=== PATIENT | male | born 1950 | race Caucasian/White ===

== ENCOUNTER 2021-02-28 15:52 | Inpatient (IN) ==
[2021-02-28] MEDS ORDERED: 0.9 % SODIUM CHLORIDE 1,000 ML IV ONE (16:05)
[2021-02-28] MEDS ORDERED: ONDANSETRON 4 MG/2 ML VIAL IV ONE (16:05)
[2021-02-28] MEDS ORDERED: cefTRIAXone 2 GM in DEXTROSE 5% IN WATER 50 ML IV ONE (16:05)
[2021-02-28] MEDS: HYDROmorphone 0.5 MG/0.5 ML SYRINGE IV PRN ×3 (16:15→16:55)
[2021-02-28] MEDS ORDERED: ceFAZolin 2 GM in DEXTROSE 5% IN WATER 50 ML IV ONE (16:24)
--- NOTE | 2021-02-28 16:29 | XRay Report ---
CLINICAL INFORMATION: FALL COMPARISON: 02/28/2021 FINDINGS: Moderate cardiomegaly appreciated. Mediastinum and pulmonary vessels are normal. The lungs are clear. No effusions. IMPRESSION: Moderate cardiomegaly. No acute cardiopulmonary disease or posttraumatic change Interpreted and Authenticated by: Edis Tee 02/28/21
[2021-02-28] MEDS ORDERED: PENICILLIN POTASSIUM IV ONE (16:34)
[2021-02-28] MEDS ORDERED: SODIUM CHLORIDE 0.9% IV ONE (16:34)
--- NOTE | 2021-02-28 16:34 | XRay Report ---
CLINICAL INFORMATION: Pain secondary to open fracture. COMPARISON: 03/02/2019 FINDINGS: Severely comminuted fracture the distal fourth of the tibia diaphysis, metaphysis and epiphysis appreciated. The proximal fragment displaced 1 cm medially and posteriorly. Fracture lines indicate with the tibial plafond resulting in incongruity of the articular surface of the ankle. Oblique fracture distal one third of the fibular diaphysis appreciated with the second oblique fracture of the distal fibular diaphysis. Proximal fragment is displaced medially 1 cm. IMPRESSION: Comminuted displaced fracture the distal tibia and fibula. Interpreted and Authenticated by: Edis Tee 02/28/21
--- NOTE | 2021-02-28 16:53 | Emergency Department Note ---
Fall HPI General Chief Complaint: Fall Stated Complaint: open tib fib fracture, fall Time Seen by Provider: 02/28/21 16:05 Source: patient, EMS, RN notes reviewed and old records reviewed Mode of arrival: EMS Limitations: no limitations History of Present Illness HPI Narrative: Narrative: A 70-year-old male was on 3 feet up on a ladder when he got his leg twisted and fell to his left side. [place] a snapping injury to his left lower leg with severe pain and unable to stand up or ambulate. He denied loss of consciousness, he denied neck pain, he denied any new back pain, no chest pain, no shortness of breath, no loss of bowel or bladder control. MD Complaint: fall Onset (ago): hour(s) (1) Fall From: from height (distance) (3 feet) and other (3 foot ladder) Fall Witnessed: no Place Fall Occurred: home Loss of Consciousness: none Prolonged Down Time?: no Symptoms Prior to Fall: none Context: tripped/slipped Location of injury - extremities: Left: lower leg (Open tib-fib fracture with 15 cm medial laceration distal tib-fib) Severity: severe Quality: sharp and stabbing Associated symptoms (after fall): Reports unable to walk; Denies denies, headache, neck pain, numbness, weakness, chest pain, shortness of breath, abdominal pain, hematuria, lightheaded, vertigo and confusion Related Data Home Medications Medication Instructions Recorded Confirmed ascorbic acid (vitamin C) 1,000 mg 1 g PO QDAY tab 07/31/17 11/03/20 tablet Previous Rx's Medication Instructions Recorded CPAP and Supplies #1 ea 09/24/17 Diabetic Shoes #1 each 11/28/17 triamcinolone acetonide 0.1 % 1 applic TOPICAL QDAY #30 g 05/19/20 topical ointment fluoxetine 20 mg capsule 60 mg PO QDAY #270 cap 07/27/20 glipizide 5 mg tablet 5 mg PO QDAY #90 tab 07/27/20 lisinopril 20 mg tablet 20 mg PO QDAY #90 tab 07/27/20 metformin 1,000 mg tablet 1,000 mg PO BID #180 tab 07/27/20 pioglitazone 45 mg tablet 45 mg PO QDAY #90 tab 07/27/20 oxybutynin chloride 5 mg 5 mg PO BID #180 tab 09/01/20 tablet,extended release 24 hr tamsulosin 0.4 mg capsule 0.4 mg PO Q24H #90 cap 09/26/20 Allergies Allergy/AdvReac Type Severity Reaction Status Date / Time No Known Drug Allergies Allergy Verified 02/28/21 15:59 Review of Systems ROS ROS Narrative: Narrative: Limitations: ROS unobtainable due to patients medical condition PFSH Narrative Patient History Narrative: Narrative: Medical/Surgical/Family History All Active Problems (Updated 02/28/21 @ 16:53 by Lenard Dangelo MD) Fracture of tibia and fibula, open (Acute) Bilateral malleolar fractures (Acute) Scleral hemorrhage of right eye (Acute) BPH w urinary obs/LUTS (Acute) Obstructive sleep apnea on CPAP (Chronic) Marijuana use (Chronic) History of tobacco abuse (Chronic) Kidney stones (Chronic ~1999) Hyperlipidemia (Chronic ~1994) Hypertension, essential (Chronic ~1994) Diabetes (Chronic ~1991) Anxiety (Chronic ~2003) Left hydrocele (Chronic) Type 2 diabetes mellitus with diabetic neuropathy (Chronic) Encounter for screening for malignant neoplasm of prostate (Chronic) Sleep apnea (Chronic) Overflow incontinence (Chronic) Other intervertebral disc degeneration, lumbar region (Chronic) Hypercholesteremia (Chronic) Depression (Chronic) Benign essential hypertension (Chronic) Benign enlargement of prostate (Chronic) Medical History (Updated 02/28/21 @ 16:53 by Lenard Dangelo MD) Anxiety (~2003) Benign enlargement of prostate Benign essential hypertension Depression Diabetes (~1991) Encounter for screening for malignant neoplasm of prostate History of tobacco abuse Hypercholesteremia Hyperlipidemia (~1994) Hypertension, essential (~1994) Kidney stones (~1999) x2 Left hydrocele Marijuana use Obstructive sleep apnea on CPAP Other intervertebral disc degeneration, lumbar region Overflow incontinence Sleep apnea Type 2 diabetes mellitus with diabetic neuropathy Surgical History Hx of tonsillectomy (~1950) Family History Father Liver cancer Sister Breast cancer Brother Prostate cancer Mother Migraines Other No pertinent family history Social History Smoking Status: Current every day smoker Alcohol Intake Frequency: a few times a week Substance Use: marijuana Exam Narrative Narrative: Narrative: Primary survey. A: Speaking clearly B: Good bilateral breath sounds pulse ox 99% on room air and within normal limits C: Good dorsal pedal pulses on bilateral lower extremities good radial pulses on bilateral upper extremities D: Able to move all 4 extremities GCS 4 5 6 [place] Coma Scale is 15 Has an open tib-fib fracture distal tib-fib of the left lower extremity Has abrasions to left elbow General Limitations: no limitations General appearance: Present alert, in distress and obese Head Head: Present atraumatic and normocephalic Eye Eye: Present normal appearance, PERRL and EOMI ENT ENT: Present normal exam and mucous membranes moist Neck Neck: Present normal inspection, full ROM and trachea midline; Absent tenderness Chest Chest: Present normal inspection; Absent tenderness Respiratory Respiratory: Present normal lung sounds bilaterally; Absent respiratory distress and decreased breath sounds Cardiovascular Cardiovascular: Present regular rate and normal rhythm; Absent systolic murmur Adbominal Abdominal: Present soft and normal bowel sounds; Absent distention, tenderness, guarding and rebound Rectal Rectal: Present normal rectal tone : Present normal inspection Extremities Extremities: Present normal inspection, tenderness (Open tib-fib on the medial camp tibia fibula that is 15 cm in length. There is exposed bone. He has sensation intact to touch on his toes is able to move his toes notes good dorsal pedal pulse.), normal capillary refill and other (Full range of motion of bilateral upper extremities full range of motion of right lower extremity. Distal neurovascular intact of these 3 extremities.); Absent full ROM, pedal edema and pretibial edema Back Back: Present normal inspection; Absent CVA tenderness (R) and CVA tenderness (L) Neurological Neurological: Present alert and oriented X3 Psychiatric Psychiatric: Present normal affect and normal mood Skin Skin: Present warm (WNL); Absent rash Course Course Course Narrative: I have placed traction on the left lower extremity and was able to reduce the open compound fracture the area was irrigated with saline wet-to-dry dressing was placed on the wound it was closed with Kerlix and a short leg splint was placed with plaster cast and Vipin wrap was done by myself. Patient had received 3 g of Ancef and 3,000,000 units of pen G. His tetanus is up-to-date his last meal was at noon he received 100 mics of fentanyl and 1 mg of Dilaudid. Discussed patient with Dr. Navarro on-call for orthopedic surgery who graciously agreed to evaluate patient in the emergency department. Consultations Consultation #1: Dr. Navarro of orthopedic surgery. Time: 15:44 Procedures Other Procedure: Comminuted compound open fracture of the distal tib-fib. It was reduced with traction by myself in the emergency department where the was no longer any exposed bone it was irrigated cleared and dressed with wet-to-dry dressing and a short leg splint was placed by myself in the emergency department. Patient tolerated procedure well he had good capillary refill and sensation intact to light touch after splint placement. MDM MDM Narrative Medical decision making narrative: Narrative: Patient with compound comminuted open tib-fib fracture of the left lower extremity open fracture was reduced and splinted in the emergency department patient was treated with IV antibiotics and pain medicines preop assessment is taking place discussed patient Dr. Navarro who graciously agreed to evaluate patient in the emergency department. Lab Data Result diagrams: 02/28/21 16:22 02/28/21 16:22 CC TIME Critical Care Time Critical Care Time: Yes Total Critical Care Time: 35 Attestation: Approximately 35minutes of critical care time was used in order to assess and manage the high probability of imminent or life threatening deterioration to compound comminuted tibiofibular ankle fracture which required my highest level of preparedness and interventions with frequent patient assessments. This time is excluding time spent on separately billable procedures. Discharge Plan Patient/Caregiver Discharge Instructions Pt seen by ASSOCIATE DIRECTOR QA/PA only: No Clinical Impression: Fracture of tibia and fibula, open, Bilateral malleolar fractures Patient Disposition: Xfer As Inpt ([facility]) Condition: Fair Follow up with: Edis Ramirez DO [Primary Care Provider] - Prescriptions: No Action (DME) CPAP and Supplies Qty: 1 RF: 0 (DME) Diabetic Shoes Qty: 1 RF: 0 triamcinolone acetonide 0.1 % topical ointment 0.1 % ointment 1 applic TOPICAL QDAY Qty: 30 RF: 1 oxybutynin chloride [Ditropan XL] 5 mg tablet extended release 24hr 5 mg PO BID Qty: 180 RF: 3 tamsulosin [Flomax] 0.4 mg capsule 0.4 mg PO Q24H Qty: 90 RF: 3 fluoxetine 20 mg capsule 60 mg PO QDAY Qty: 270 RF: 3 glipizide 5 mg tablet 5 mg PO QDAY Qty: 90 RF: 3 lisinopril 20 mg tablet 20 mg PO QDAY Qty: 90 RF: 3 metformin 1,000 mg tablet 1,000 mg PO BID Qty: 180 RF: 3 pioglitazone 45 mg tablet 45 mg PO QDAY Qty: 90 RF: 3 ascorbic acid (vitamin C) 1,000 mg tablet 1 g PO QDAY RF: 0
[2021-02-28 16:56] LABS: Basophils # (Auto) 0.04 K/mcL (0.00-0.20); Basophils % (Auto) 0.8 % (0.0-2.0); Eosinophils # (Auto) 0.07 K/mcL (0.00-0.70); Eosinophils % (Auto) 1.4 % (0.0-7.0); Hematocrit 37.9 % (41.0-55.0); Hemoglobin 12.5 g/dL (13.5-16.5); Lymphocytes # (Auto) 1.23 K/mcL (1.50-4.80); Lymphocytes % (Auto) 24.5 % (15.0-49.0); Mean Cell Volume 92.2 fL (80.0-100.0); Mean Platelet Volume 9.2 fL (7.4-10.4); Monocytes # (Auto) 0.56 K/mcL (0.10-0.90); Monocytes % (Auto) 11.1 % (1.0-12.0); Neutrophils % (Auto) 62.2 % (38.0-78.0); Platelet Count 186 K/mcL (140-440); RBC 4.11 M/mcL (4.50-5.90); Red Cell Distribution Width 13.2 % (11.5-14.5)
[2021-02-28] MEDS ORDERED: METOCLOPRAMIDE 10 MG/2 ML VIAL IV ONE (17:01)
[2021-02-28] MEDS ORDERED: FAMOTIDINE/PF 20 MG/2 ML VIAL IV ONE (17:02)
[2021-02-28 17:06] LABS: Prothrombin Time 14.2 sec (11.9-14.5)
[2021-02-28 17:11] LABS: ALT/SGPT 16 U/L (<40); AST/SGOT 17 U/L (<40); Albumin 3.8 gm/dL (3.2-5.2); Albumin/Globulin Ratio 1.7 (1.0-2.3); Alkaline Phosphatase 68 U/L (39-117); Bilirubin,Total 0.3 mg/dL (0.1-1.0); Blood Urea Nitrogen 18 mg/dL (8-23); Calcium 8.6 mg/dL (8.6-10.4); Carbon Dioxide 26 mmol/L (22-30); Chloride 107 mmol/L (96-108); Globulin 2.2 gm/dL (2.2-3.7); Glomerular Filtration Rate 75; Glucose 104 mg/dL (70-105)
[2021-02-28] MEDS ORDERED: IPRATROPIUM/ALBUTEROL 3 ML AMPUL.NEB NEB ONE (17:14)
[2021-02-28] MEDS ORDERED: ROCURONIUM 10 MG/ML ML IV ONE (18:03)
[2021-02-28] MEDS ORDERED: DEXAMETHASONE 10 MG/ML VIAL ONE (18:03)
[2021-02-28] MEDS ORDERED: ONDANSETRON 4 MG/2 ML VIAL ONE (18:03)
[2021-02-28] MEDS ORDERED: PROPOFOL 200 MG/20 ML VIAL IV ONE (18:03)
[2021-02-28] MEDS ORDERED: MIDAZOLAM 2 MG/2 ML VIAL ONE (18:03)
[2021-02-28] MEDS ORDERED: ROPIVACAINE HCL/PF 30 ML VIAL IJ ONE (18:03)
[2021-02-28] MEDS ORDERED: fentaNYL 250 MCG/5 ML VIAL IV ONE (18:03)
[2021-02-28] MEDS ORDERED: METOPROLOL TARTRATE 5 MG/5 ML VIAL IV ONE (18:03)
[2021-02-28] MEDS ORDERED: SUCCINYLCHOLINE 20 MG/ML ML IV ONE (18:03)
[2021-02-28] MEDS ORDERED: TRANEXAMIC ACID 1,000 MG/10 ML VIAL IV ONE ×2 (18:03→21:11)
[2021-02-28] MEDS ORDERED: LIDOCAINE HCL/PF 100 MG/5 ML SYRINGE IV ONE (18:03)
[2021-02-28] MEDS ORDERED: HYDROmorphone 1 MG/ML SYRINGE ONE (18:03)
[2021-02-28] MEDS ORDERED: KETAMINE 100 MG/ML ML ONE (18:03)
[2021-02-28] MEDS ORDERED: DIPH,PERTUSS(ACELL),TET VAC/PF 0.5 ML SYRINGE IM ONE (18:14)
[2021-02-28] MEDS ORDERED: ONDANSETRON 4 MG/2 ML VIAL IV PRN ×2 (21:11→21:32)
--- NOTE | 2021-02-28 21:11 | Brief Operative Note ---
Brief Operative Note Date of procedure: 02/28/21 Pre-op diagnosis: left open tib fib and pilon fx Post-op diagnosis: same Procedure: Left ankle debridement and irrigation and orif pilon fx and orif fibula Grafts/Implants: Yes Anesthesia: GETA Complications: none Surgeon: Levi Akers Regenerator Operator: Jose Fermin Estimated blood loss (cc): 150 Tourniquet Time (Minutes): 110 Specimens Removed/Pathology: none sent Condition: stable Disposition: PACU
[2021-02-28] MEDS ORDERED: CLINDAMYCIN 600 MG in DEXTROSE 5% IN WATER 50 ML IV SCH (21:15)
[2021-02-28] MEDS: fentaNYL 100 MCG/2 ML VIAL IV PRN ×4 (21:16→21:41)
[2021-02-28] MEDS ORDERED: fentaNYL 100 MCG/2 ML VIAL IV ONE (21:17)
[2021-02-28] MEDS ORDERED: ACETAMINOPHEN 1,000 MG/100 ML BAG IV ONE ×2 (21:18→21:32)
[2021-02-28] MEDS ORDERED: HYDROmorphone 0.5 MG/0.5 ML SYRINGE ONE (21:18)
[2021-02-28] MEDS ORDERED: METOPROLOL TARTRATE 5 MG/5 ML VIAL IV PRN ×2 (21:32→22:15)
[2021-02-28] MEDS ORDERED: HYDROmorphone 0.5 MG/0.5 ML SYRINGE IV PRN (21:32)
[2021-02-28] MEDS ORDERED: METHOCARBAMOL 1,000 MG/10 ML VIAL IV PRN (21:32)
[2021-02-28] MEDS ORDERED: ePHEDrine 50 MG/ML AMPUL IV PRN (21:32)
[2021-02-28] MEDS ORDERED: diphenhydrAMINE 50 MG/ML VIAL IV PRN (21:32)
[2021-02-28] MEDS ORDERED: IPRATROPIUM/ALBUTEROL 3 ML AMPUL.NEB NEB PRN (21:32)
[2021-02-28] MEDS ORDERED: ATROPINE SULFATE 0.4 MG/ML VIAL IV PRN (21:32)
[2021-02-28] MEDS ORDERED: MEPERIDINE 25 MG/ML VIAL IV PRN (21:32)
[2021-02-28] MEDS ORDERED: METHOCARBAMOL 1,000 MG/10 ML VIAL ONE (21:33)
[2021-02-28] MEDS ORDERED: LACTATED RINGERS 1,000 ML IV SCH (21:45)
[2021-02-28] MEDS: LACTATED RINGERS 1,000 ML IV SCH (22:10)
[2021-02-28] MEDS ORDERED: DEXTROSE 31 GM ORAL.SUSP PO PRN (22:15)
[2021-02-28] MEDS ORDERED: DEXTROSE 50% 50 ML VIAL IV PRN (22:15)
--- NOTE | 2021-02-28 22:20 | Internal Medicine Consult Note ---
HPI Data of Consult Primary Care Provider: Edis Ramirez DO Consult Narrative Patient Information: Note initiated : 02/28/21 at 10:16 pm Service Date, if different from initiated Date: [] Patient: Luis David 70 y/o M admitted on for open tib fib fracture, fall. Chief Complaint: cc:: Mr. Winter is a 70-year-old with history of DM type II/morbid obesity/hypertension/BPH who fell 3 feet off a ladder landing on his feet and twisting his foot. He noticed bleeding and was unable to bear weight. He was brought into the ER with a open compound fracture distal tib-fib and subsequently was taken to surgery by orthopedics. Postoperatively hospital service was consulted in light of intraoperative atrial fibrillation however rate remained controlled around 100. Patient was seen in the immediate postoperative phase in stable condition. He denies shortness of breath or chest pain. Denies prior history of atrial fibrillation. He is currently sedated and was not able to provide a detailed history to the course of events. Review of systems Denies chest pain, fever, chills, lightheadedness dizziness or shortness of breath PFSH PFSH All Active Problems (Updated 02/28/21 @ 16:53 by Lenard Dangelo MD) Fracture of tibia and fibula, open (Acute) Bilateral malleolar fractures (Acute) Scleral hemorrhage of right eye (Acute) BPH w urinary obs/LUTS (Acute) Obstructive sleep apnea on CPAP (Chronic) Marijuana use (Chronic) History of tobacco abuse (Chronic) Kidney stones (Chronic ~1999) Hyperlipidemia (Chronic ~1994) Hypertension, essential (Chronic ~1994) Diabetes (Chronic ~1991) Anxiety (Chronic ~2003) Left hydrocele (Chronic) Type 2 diabetes mellitus with diabetic neuropathy (Chronic) Encounter for screening for malignant neoplasm of prostate (Chronic) Sleep apnea (Chronic) Overflow incontinence (Chronic) Other intervertebral disc degeneration, lumbar region (Chronic) Hypercholesteremia (Chronic) Depression (Chronic) Benign essential hypertension (Chronic) Benign enlargement of prostate (Chronic) Medical History (Updated 02/28/21 @ 16:53 by Lenard Dangelo MD) Anxiety (~2003) Benign enlargement of prostate Benign essential hypertension Depression Diabetes (~1991) Encounter for screening for malignant neoplasm of prostate History of tobacco abuse Hypercholesteremia Hyperlipidemia (~1994) Hypertension, essential (~1994) Kidney stones (~1999) x2 Left hydrocele Marijuana use Obstructive sleep apnea on CPAP Other intervertebral disc degeneration, lumbar region Overflow incontinence Sleep apnea Type 2 diabetes mellitus with diabetic neuropathy Surgical History Hx of tonsillectomy (~195) Family History Father Liver cancer Sister Breast cancer Brother Prostate cancer Mother Migraines Other No pertinent family history Social History marital status: alcohol intake frequency: a few times a week substance use type: marijuana MEDS/ALLERGIES Home Medications and Allergies Home Medications Medication Instructions Recorded Confirmed Type ascorbic acid (vitamin C) 1,000 mg 1 g PO BID tab 07/31/17 02/28/21 History tablet CPAP and Supplies #1 ea 09/24/17 02/28/21 Rx Diabetic Shoes #1 each 11/28/17 02/28/21 Rx triamcinolone acetonide 0.1 % 1 applic TOPICAL QDAY #30 g 05/19/20 02/28/21 Rx topical ointment fluoxetine 20 mg capsule 60 mg PO QDAY #270 cap 07/27/20 02/28/21 Rx lisinopril 20 mg tablet 20 mg PO QDAY #90 tab 07/27/20 02/28/21 Rx metformin 1,000 mg tablet 1,000 mg PO BID #180 tab 07/27/20 02/28/21 Rx pioglitazone 45 mg tablet 45 mg PO QDAY #90 tab 07/27/20 02/28/21 Rx oxybutynin chloride 5 mg 5 mg PO BID #180 tab 09/01/20 02/28/21 Rx tablet,extended release 24 hr tamsulosin 0.4 mg capsule 0.4 mg PO Q24H #90 cap 09/26/20 02/28/21 Rx Allergies Allergy/AdvReac Type Severity Reaction Status Date / Time No Known Drug Allergies Allergy Verified 02/28/21 15:59 EXAM Constitutional Vitals: Temp Pulse Resp BP Pulse Ox 97.9 F 105 H 12 112/67 99 02/28/21 21:57 02/28/21 21:57 02/28/21 21:57 02/28/21 21:57 04/13/21 21:57 Sedated under effect of anesthesia Head normocephalic Oral cavity moist No ear nose discharge Eye movement symmetrical Neck supple no lymphadenopathy S1-S2 irregular Nonlabored breathing Nondistended nontender abdomen Left lower extremity postoperative dressing no lymphedema Skin no suspicious lesion Psych sedated but opens eyes to verbal commands Neuro could not be examined DATA Data Completed and Pending Labs: Labs from last 24 hours 02/28/21 02/28/21 02/28/21 16:22 16:22 16:22 WBC 5.0 RBC 4.11 L Hgb 12.5 L Hct 37.9 L MCV 92.2 MCH 30.4 MCHC 33.0 RDW 13.2 Plt Count 186 MPV 9.2 Neut % (Auto) 62.2 Lymph % (Auto) 24.5 [place] % (Auto) 11.1 Eos % (Auto) 1.4 Baso % (Auto) 0.8 Lymph # (Auto) 1.23 L [place] # (Auto) 0.56 Eos # (Auto) 0.07 Baso # (Auto) 0.04 Absolute Neutrophils 3.13 PT 14.2 INR 1.0 Sodium 137 Potassium 4.8 Chloride 107 Carbon Dioxide 26 Anion Gap 4.0 L BUN 18 Creatinine 1.0 GFR Calculation 75 Glucose 104 Calcium 8.6 Total Bilirubin 0.3 AST 17 ALT 16 Alkaline Phosphatase 68 Total Protein 6.0 Albumin 3.8 Globulin 2.2 Albumin/Globulin Ratio 1.7 A/P Narrative A/P Narrative: * Open left tib-fib fracture status post operative intervention Hospitalist consult for management of medical issues as below * Atrial fibrillation new onset currently rate controlled. Likely precipitated by fall/injury, operative stress and anesthesia. Continue rate control measures on beta-kera/telemetry monitoring overnight * History of DM type II continue basal prandial insulin/CC diet * History of hypertension hold NAIDA inhibitor * Anxiety disorder continue fluoxetine * BPH continue tamsulosin * History obstructive sleep apnea on home CPAP Plan * Postop care per orthopedics * Rate control measures * Pre-existing medical condition management as above * PT OT, case management coordinate SNF transfer Time Spent With Patient Time: Total time spent is greater than 50% in coordination of care (as documented) at patient's floor/unit and/or counseling patient:
[2021-02-28] MEDS: GENTAMICIN SULFATE IV SCH (23:30)
[2021-02-28] MEDS: SODIUM CHLORIDE 0.9% IV SCH (23:30)
[2021-02-28] MEDS: 0.9 % SODIUM CHLORIDE 10 ML SYRINGE IV SCH (23:32)
[2021-03-01] MEDS: HYDROmorphone 1 MG/ML SYRINGE IV PRN ×2 (00:07→03:31)
[2021-03-01] MEDS ORDERED: GENTAMICIN SULFATE 80 MG/2 ML VIAL ONE ×2 (00:15→00:17)
[2021-03-01] MEDS: SODIUM CHLORIDE 0.9% IV SCH (00:25)
[2021-03-01] MEDS: GENTAMICIN SULFATE IV SCH (00:25)
--- NOTE | 2021-03-01 04:00 | XRay Report ---
CLINICAL INFORMATION: orif left tibia and fibula COMPARISON: None. FINDINGS: Comminuted fractures distal fibula has been reduced to near anatomic alignment transfixed by lateral plate and screws. There is still 1 cm of lateral displacement by a proximal fragment. Oblique fracture mid fibula and second oblique fracture of the distal fibular diaphysis remain unchanged. The proximal fragment shows approximately 8 mm displacement IMPRESSION: ORIF distal tibial fracture with improved alignment Mid and distal fibular diaphyseal fracture-unchanged Interpreted and Authenticated by: Edis Tee 03/01/21
[2021-03-01] MEDS: 0.9 % SODIUM CHLORIDE 10 ML SYRINGE IV SCH ×3 (04:08→22:48)
[2021-03-01 05:56] LABS: Appearance,Urine CLEAR (Clear); Bilirubin,Urine Negative (Negative); Color,Urine YELLOW; Culture Indicated,Urine No; Glucose,Urine (UA) Negative (Negative); Ketones,Urine Negative (Negative); Leukocyte Esterase,Urine Negative /ug (Negative); Mucus,Urine FEW /hpf; Nitrate,Urine Negative (Negative); Protein,Urine Negative (Negative); Specific Gravity,Urine 1.017 (1.000-1.035); Urine Hyaline Cast 1 /lph (0-2); Urine RBC 27 /hpf (0-3); Urine Squamous Epithelial Cell 0 /hpf (0-4); Urine WBC < 1 /hpf (0-4); Urobilinogen,Urine Negative
[2021-03-01] MEDS: INSULIN LISPRO 1 UNIT/0.01 ML UNIT SQ SCH ×4 (07:08→20:32)
--- NOTE | 2021-03-01 07:57 | History and Physical Report ---
DATE OF ADMISSION: 02/28/2021 CHIEF COMPLAINT: Left leg comminuted pilon fracture. HISTORY OF PRESENT ILLNESS: This is a very pleasant 70-year-old male who sustained a fall about 3 feet up off a ladder. He had immediate pain, swelling and deformity with an open fracture of 15 cm. He was seen in the Emergency Room and diagnosed with a comminuted pilon fracture of the distal tibia. This comminution extends into the joint line and extended proximally about 6-8 cm. The open wound was reduced by the ER physician and placed in a posterior splint. He was given Ancef 3 grams as well as Pen G 3 million units. He last ate approximately 5 hours ago. He is a smoker. ALLERGIES: He lists none. PAST MEDICAL HISTORY: Obesity, hypertension. SOCIAL HISTORY: Smoker. PHYSICAL EXAM: GENERAL: A very pleasant 70-year-old male. His son is present in the Emergency Room. I spoke to the patient as well as his son and he describes events with a single leg fall of approximately 3 feet with a twisting type component. He is alert and cooperative, but somewhat confused. LUNGS: Clear to auscultation. CARDIOVASCULAR: Irregularly irregular. No murmurs are heard. ABDOMEN: Large, nontender. LEFT LOWER EXTREMITY: His left leg is in a posterior splint. He is able to move his toes and has normal light touch sensation to the big, second and third toes with good capillary refill. The wound is opened with a 15 cm component. His hip is nontender. DIAGNOSTIC STUDIES: X-rays of his left ankle demonstrate a pilon fracture involving the medial malleolus, fibula in a segmental fashion that extends with a spiral fracture into the distal third of the tibia-fibula. IMPRESSION: Left ankle pilon fracture. PLAN: With this, I have recommended open reduction and internal fixation with debridement and irrigation of the wound and secondary wound closure. We will continue with IV antibiotics and admit to the hospital for 24 hours. He understands the risks and benefits and agrees to proceed. This is an emergency, given the size of the wound and the open nature of the wound. He understands the risk of heart attack, stroke and aspiration. He understands that he will not be weightbearing for 6 weeks or more. RB:beny Job ID: [id number] Doc ID: [id number] Levi Akers MD
--- NOTE | 2021-03-01 08:07 | Operative Note ---
DATE OF OPERATION: 02/28/2021 PREOPERATIVE DIAGNOSIS: Left ankle open type 3 pilon fracture with fibula fracture. POSTOPERATIVE DIAGNOSIS: Left ankle open type 3 pilon fracture with fibula fracture. PROCEDURE: Left pilon fracture debridement and irrigation of the open type 3 fracture and then open reduction internal fixation of the pilon fracture as well as open reduction internal fixation of the fibula. SURGEON: Levi Akers M.D. BUSINESS LINE CONTROLLER: Jose Fermin PA-C. This providers expertise and technical skill were required throughout the case. The SHAREE assisted with preoperative coordination, intraoperative retraction, wound closure, and dressing and splint application, as well as postoperative documentation and care coordination. ANESTHESIA: General LMA anesthesia. COMPLICATIONS: None. TOURNIQUET TIME: Over 110 minutes at 300 mmHg. ESTIMATED BLOOD LOSS: About 150 mL. BLOOD PRODUCTS GIVEN: None. DESCRIPTION OF PROCEDURE: The patient was brought to the operating room, put to sleep with general LMA anesthesia. Once asleep, the patient had the left leg sterilely prepped and draped in the usual sterile fashion. A timeout was performed, confirming it as the operative site. Once the splint had been removed and sterilely prepped and draped, we then thoroughly irrigated the wound. After debriding the skin edges, we irrigated thoroughly and then identified the fracture. It was very comminuted, about 50% of the distance of the tibia and extended into the joint. Once done, we were able to reduce the joint with anterior and posterior screws. We placed an anterior medial pilon fracture plate first fixing the distal fragment and then the segmental fragments and then proximally. We confirmed reduction with images. We irrigated thoroughly and then placed additional screws--number and size of screws per nurse's notes. Once done, we were able to then place interrupted #2 nylon to close the wound. It was measured over 16 cm in length. Distally, we made a 3 cm incision for subcutaneous placement of the plate and then a 4 cm incision proximally for the fracture where we filled the holes with locking screws. We took images on AP and lateral, to confirm the reduction. Once done, we were able then to make an incision about 13 cm in length over the fibula. This was a segmental fracture. This was reduced. We placed a long titanium plate. Three screws were placed distally, four screws in the middle segment and then three screws proximally. This gave excellent alignment of the fibula and excellent fixation. We irrigated thoroughly, closed the skin with 2-0 Vicryl and then steve. His original wound was closed with steve as well. Sterile bandage was applied with Xeroform and a walking boot was placed. Tourniquet was deflated at approximately 110 minutes. Blood loss 150 mL. RBH:kh Job ID: [id number] Doc ID: [id number] Levi Akers MD
[2021-03-01] MEDS: ceFAZolin 1 GM VIAL IV SCH ×2 (08:36)
--- NOTE | 2021-03-01 10:07 | XRay Report ---
CLINICAL INFORMATION: Post Op COMPARISON: None. FINDINGS: Severely comminuted fracture of the distal tibial diaphysis with an oblique component extending the base of the medial malleolus have been reduced and transfixed by medial plate and multiple screws. A proximal fragment, laterally, is displaced 1 cm laterally into the interosseous region. Oblique fracture distal fibular diaphysis and second oblique fracture through the supra malleolar region abdomen reduced to anatomic alignment transfixed by lateral plate and screws. Ankle mortise and talocalcaneal joints are normal. IMPRESSION: ORIF comminuted fractures of the distal tibia fibula-as described Interpreted and Authenticated by: Edis Tee 03/01/21
[2021-03-01] MEDS: METOPROLOL TARTRATE 25 MG TABLET PO SCH ×2 (10:15→20:34)
--- NOTE | 2021-03-01 10:48 | Internal Med Progress Note ---
SUBJECTIVE Subjective Patient information: Note initiated : 03/01/21 at 10:46 am Service Date, if different from initiated Date: [] Patient: Luis David 70 y/o M admitted on 03/01/21 for open tib fib fracture, fall. Chief Complaint: [] Interval history: Mr. Winter is a 70-year-old with history of DM type II/morbid obesity/hypertension/BPH who fell 3 feet off a ladder landing on his feet and twisting his foot. He noticed bleeding and was unable to bear weight. He was brought into the ER with a open compound fracture distal tib-fib and subse quently was taken to surgery by orthopedics. Postoperatively hospital service was consulted in light of intraoperative atrial fibrillation however rate remained controlled around 100. Patient was seen in the immediate postoperative phase in stable condition. He denies shortness of breath or chest pain. Denies prior history of atrial fibrillation. He is currently sedated and was not able to provide a detailed history to the course of events. 03/01-patient doing well postop. Rate controlled. Denies chest pain lightheadedness dizziness. Ongoing physical therapy. Tolerating diet. Stable labs and hemodynamics. Continue postoperative care per orthopedics. Restart home medications except for antihypertensives until systolics over 140. Hemoglobin 12.3. Constitutional Vitals: Vital Signs Temp Pulse Resp BP Pulse Ox 97.9 F 82 14 119/71 98 03/01/21 07:26 03/01/21 07:26 03/01/21 07:26 03/01/21 07:26 03/01/21 07:26 Period Temp Pulse Resp BP Sys/Enriquez Pulse Ox Last 24 Hr 97.9 F-98.4 F 76-112 12-22 101-186/61-124 91-100 Intake and Output 02/28/21 03/01/21 03/01/21 21:59 05:59 13:59 Intake Total 2100 1483.5 180 Output Total 750 750 Balance 1350 733.5 180 Weight 163.293 kg 163.293 kg alert oriented Nonlabored breathing No anxiety No significant postoperative pain swelling or bruising around the operative site Intake & Output: Intake & Output 02/28/21 03/01/21 03/01/21 21:59 05:59 13:59 Intake Total 2100 1483.5 180 Output Total 750 750 Balance 1350 733.5 180 Weight 163.293 kg 163.293 kg Intake: IV 1483.5 Sodium Chloride 0.9% 1,000 ml @ 1000 Wide Open IV .Q0M ONE Rx#: [id number] Gentamicin Sulfate 340 mg In 258.5 Sodium Chloride 0.9% 250 ml @ 250 mls/hr IV ONCE [facility] Rx#: [id number] Lactated Ringers 1,000 ml @ 20 19 mls/hr IV .Q24H [facility] Rx#: [id number] Pfizerpen 3,000,000 Unit In 56 Sodium Chloride 0.9% 50 ml @ 100 mls/hr IV ONCE [facility] Rx#: [id number] Ancef 2 gm In Dextrose 5% in 50 Water 50 ml @ 100 mls/hr IV ONCE ONE Rx#:[id number] Oral 0 180 IV - Manual Only 2100 Output: Urine Catheter Amount 200 750 Estimated Blood Loss 550 Other: Meal Breakfast Percent of Meal Consumed 100% Urine Appearance Clear Clear Uretheral (Patel) Clear Clear Urine Color Bright Yellow Bright Yellow Uretheral (Patel) Bright Yellow Dark Yellow Urine Odor Normal OBJ DATA Labs CBC & Chem 7: 03/01/21 08:56 02/28/21 16:22 Labs: Abnormal Lab Results 03/01/21 03/01/21 02/28/21 08:56 04:45 16:22 RBC Hgb Hct 33.1 L Lymph # (Auto) Anion Gap 4.0 L Urine RBC 27 H Urine Mucus Few A 02/28/21 16:22 RBC 4.11 L Hgb 12.5 L Hct 37.9 L Lymph # (Auto) 1.23 L Anion Gap Urine RBC Urine Mucus Meds: Medications Hydrocodone Bitart/Acetaminophen (Hydrocodone/Apap 10/325mg Tablet) 0 tab PO Q4HP PRN; Protocol PRN Reason: Per Pain Protocol Dextrose (Dextrose 50% 50 Ml Vial) 0 ml IV UD PRN PRN Reason: Hypoglycemia Diagnostic Test (Pha) (Accu-Chek 1 Each Strip) 1 each FS ACHS [facility] Last Admin: 03/01/21 07:08 Dose: 1 each Documented by: Fluoxetine HCl (Fluoxetine Hcl 20 Mg Capsule) 60 mg PO QDAY [facility] Glucose (Dextrose 31 Gm Oral.Susp) 15 gm PO PRN PRN PRN Reason: Hypoglycemia Hydromorphone HCl (Hydromorphone 1 Mg/Ml Syringe) 0 mg IV Q2HP PRN; Protocol PRN Reason: Per Pain Protocol Last Admin: 03/01/21 03:31 Dose: 0.5 mg Documented by: Lactated Ringer's (Lactated Ringers) 1,000 mls @ 50 mls/hr IV .Q20H [facility] Last Admin: 02/28/21 22:10 Dose: 50 mls/hr Documented by: Insulin Human Lispro (Insulin Lispro 1 Unit/0.01 Ml Unit) 0 unit SQ ACHS [facility]; Protocol Last Admin: 03/01/21 07:08 Dose: Not Given Documented by: Metoprolol Tartrate (Metoprolol Tartrate 25 Mg Tablet) 12.5 mg PO BID [facility] Last Admin: 03/01/21 10:15 Dose: 12.5 mg Documented by: Non-Formulary Medication (Metformin) 1,000 mg PO BID [facility] Non-Formulary Medication (Triamcinolone Acetonide) 1 applic TOPICAL QDAY [facility] Non-Formulary Medication (Ascorbic Acid (Vitamin C)) 1 g PO BID [facility] Ondansetron HCl (Ondansetron 4 Mg/2 Ml Vial) 4 mg IV Q6HP PRN; Protocol PRN Reason: Nausea And Vomiting Oxybutynin Chloride (Oxybutynin Chloride 5 Mg Tab.Xl.24h) 5 mg PO BID [facility] Pioglitazone HCl (Pioglitazone Hcl 45 Mg Tablet) 45 mg PO QDAY [facility] Sodium Chloride (0.9 % Sodium Chloride 10 Ml Syringe) 10 ml IV Q8 [facility] Last Admin: 03/01/21 04:08 Dose: Not Given Documented by: Tamsulosin HCl (Tamsulosin 0.4 Mg Capsule) 0.4 mg PO Q24H [facility] A/P Narrative A/P Narrative: * Open left tib-fib fracture status post operative intervention Hospitalist consult for management of medical issues as below * Atrial fibrillation new onset currently rate controlled on beta-kera. Likely precipitated by fall/injury, operative stress and anesthesia. Continually monitoring * History of DM type II continue basal prandial insulin/CC diet * History of hypertension restart NAIDA inhibitor in 24 hours with holding parameters * Anxiety disorder continue fluoxetine * BPH continue tamsulosin * History obstructive sleep apnea on home CPAP Plan * Continue postop care per orthopedics * Rate control measures on oral beta-kera * Pre-existing medical condition management as above * PT OT, case management coordinate SNF transfer Time Spent With Patient Time: Total time spent is greater than 50% in coordination of care (as documented) at patient's floor/unit and/or counseling patient:
[2021-03-01] MEDS: HYDROcodone/APAP 10/325MG TABLET PO PRN ×3 (11:58→20:38)
[2021-03-01] MEDS: LACTATED RINGERS 1,000 ML IV SCH (16:26)
[2021-03-01] MEDS: metFORMIN 500 MG TABLET PO SCH (16:34)
--- NOTE | 2021-03-01 16:57 | Orthopedic Progress Note ---
SUBJECTIVE Subjective Patient information: Note initiated : 03/01/21 at 4:53 pm Service Date, if different from initiated Date: [] Patient: Luis David 70 y/o M admitted on 03/01/21 for open tib fib fracture, fall. Chief Complaint: [minimal pain with sciatic nerve block no nausea ] Constitutional Vitals: Vital Signs Temp Pulse Resp BP Pulse Ox 97.9 F 76 17 112/67 98 03/01/21 16:00 03/01/21 16:00 03/01/21 16:00 03/01/21 16:00 03/01/21 16:00 Period Temp Pulse Resp BP Sys/Enriquez Pulse Ox Last 24 Hr 97.9 F-98.4 F 76-112 - 101-186/61-124 91-100 Intake and Output 03/01/21 03/01/21 03/01/21 05:59 13:59 21:59 Intake Total 1483.5 180 804 Output Total 750 650 900 Balance 733.5 -470 -96 Weight 360 lb Intake & Output: Intake & Output 03/01/21 03/01/21 03/01/21 05:59 13:59 21:59 Intake Total 1483.5 180 804 Output Total 750 650 900 Balance 733.5 -470 -96 Weight 360 lb Intake: IV 1483.5 804 Sodium Chloride 0.9% 1,000 ml @ 1000 Wide Open IV .Q0M [facility] Rx#: [id number] Gentamicin Sulfate 340 mg In 258.5 Sodium Chloride 0.9% 250 ml @ 250 mls/hr IV ONCE [facility] Rx#: [id number] Lactated Ringers 1,000 ml @ 50 19 804 mls/hr IV .Q20H [facility] Rx#: [id number] Pfizerpen 3,000,000 Unit In 56 Sodium Chloride 0.9% 50 ml @ 100 mls/hr IV ONCE [facility] Rx#: [id number] Ancef 2 gm In Dextrose 5% in 50 Water 50 ml @ 100 mls/hr IV ONCE [facility] Rx#:[id number] Oral 0 180 Output: Urine Catheter Amount 750 650 900 Other: Meal Breakfast Percent of Meal Consumed 100% Urine Appearance Clear Clear Uretheral (Patel) Clear Urine Color Bright Yellow Dark Yellow Uretheral (Patel) Dark Yellow Urine Odor Normal Expanded Lower Extremity Exam Neuro vascular tendon exam: Present decreased fine/light touch, motor deficit (moving toes and ankle) and sensory deficit Gait: Present unable to bear weight Leg image: 1. 2. 3. 4. 5. OBJ DATA Labs CBC & Chem 7: 03/01/21 08:56 02/28/21 16:22 Labs: Abnormal Lab Results 03/01/21 03/01/21 02/28/21 08:56 04:45 16:22 RBC Hgb Hct 33.1 L Lymph # (Auto) Anion Gap 4.0 L Urine RBC 27 H Urine Mucus Few A 02/28/21 16:22 RBC 4.11 L Hgb 12.5 L Hct 37.9 L Lymph # (Auto) 1.23 L Anion Gap Urine RBC Urine Mucus Meds: Medications Hydrocodone Bitart/Acetaminophen (Hydrocodone/Apap 10/325mg Tablet) 0 tab PO Q4HP PRN; Protocol PRN Reason: Per Pain Protocol Last Admin: 03/01/21 16:33 Dose: 2 tab Documented by: Ascorbic Acid (Ascorbic Acid 500 Mg Tablet) 1,000 mg PO BID [facility] Dextrose (Dextrose 50% 50 Ml Vial) 0 ml IV UD PRN PRN Reason: Hypoglycemia Diagnostic Test (Pha) (Accu-Chek 1 Each Strip) [address] [facility] Last Admin: 03/01/21 16:35 Dose: 1 each Documented by: Fluoxetine HCl (Fluoxetine Hcl 20 Mg Capsule) 60 mg PO QDAY [facility] Glucose (Dextrose 31 Gm Oral.Susp) 15 gm PO PRN PRN PRN Reason: Hypoglycemia Hydromorphone HCl (Hydromorphone 1 Mg/Ml Syringe) 0 mg IV Q2HP PRN; Protocol PRN Reason: Per Pain Protocol Last Admin: 03/01/21 03:31 Dose: 0.5 mg Documented by: Lactated Ringer's (Lactated Ringers) 1,000 mls @ 50 mls/hr IV .Q20H [facility] Last Admin: 03/01/21 16:26 Dose: Not Given Documented by: Insulin Human Lispro (Insulin Lispro 1 Unit/0.01 Ml Unit) [address] [facility]; Protocol Last Admin: 03/01/21 16:39 Dose: Not Given Documented by: Metformin HCl (Metformin 500 Mg Tablet) 1,000 mg PO BIDCC [facility] Last Admin: 03/01/21 16:34 Dose: 1,000 mg Documented by: Metoprolol Tartrate (Metoprolol Tartrate 25 Mg Tablet) 12.5 mg PO BID [facility] Last Admin: 03/01/21 10:15 Dose: 12.5 mg Documented by: Ondansetron HCl (Ondansetron 4 Mg/2 Ml Vial) 4 mg IV Q6HP PRN; Protocol PRN Reason: Nausea And Vomiting Oxybutynin Chloride (Oxybutynin Chloride 5 Mg Tab.Xl.24h) 5 mg PO BID [facility] Triamcinolone Acetonide 0.1 % Ointment 1 dose TOPICAL DAILYP PRN PRN Reason: Rash Pioglitazone HCl (Pioglitazone 15 Mg Tablet) 45 mg PO DAILY [facility] Sodium Chloride (0.9 % Sodium Chloride 10 Ml Syringe) 10 ml IV Q8 [facility] Last Admin: 03/01/21 16:34 Dose: 10 ml Documented by: Tamsulosin HCl (Tamsulosin 0.4 Mg Capsule) 0.4 mg PO [facility] A/P Narrative A/P Narrative: dc home in am if able to do pt Time Spent With Patient Time: Total time spent is greater than 50% in coordination of care (as documented) at patient's floor/unit and/or counseling patient: Total time spent with greater than 50% in coordination of care (as documented) at patient's floor/unit and/or counseling patient:: 15 - 24 minutes
--- NOTE | 2021-03-01 17:09 | Orthopedic Progress Note ---
SUBJECTIVE Subjective Patient information: Note initiated : 03/01/21 at 5:07 pm Service Date, if different from initiated Date: [] Patient: Luis David 70 y/o M admitted on 03/01/21 for open tib fib fracture, fall. Chief Complaint: [] Constitutional Vitals: Vital Signs Temp Pulse Resp BP Pulse Ox 97.9 F 76 17 112/67 98 03/01/21 16:00 03/01/21 16:00 03/01/21 16:00 03/01/21 16:00 03/01/21 16:00 Period Temp Pulse Resp BP Sys/Enriquez Pulse Ox Last 24 Hr 97.9 F-98.4 F 76-112 12-22 101-186/61-124 91-100 Intake and Output 03/01/21 03/01/21 03/01/21 05:59 13:59 21:59 Intake Total 1483.5 180 804 Output Total 750 650 900 Balance 733.5 -470 -96 Weight 360 lb Intake & Output: Intake & Output 03/01/21 03/01/21 03/01/21 05:59 13:59 21:59 Intake Total 1483.5 180 804 Output Total 750 650 900 Balance 733.5 -470 -96 Weight 360 lb Intake: IV 1483.5 804 Sodium Chloride 0.9% 1,000 ml @ 1000 Wide Open IV .Q0M [facility] Rx#: [id number] Gentamicin Sulfate 340 mg In 258.5 Sodium Chloride 0.9% 250 ml @ 250 mls/hr IV ONCE [facility] Rx#: [id number] Lactated Ringers 1,000 ml @ 50 19 804 mls/hr IV .Q20H [facility] Rx#: [id number] Pfizerpen 3,000,000 Unit In 56 Sodium Chloride 0.9% 50 ml @ 100 mls/hr IV ONCE [facility] Rx#: [id number] Ancef 2 gm In Dextrose 5% in 50 Water 50 ml @ 100 mls/hr IV ONCE [facility] Rx#:[id number] Oral 0 180 Output: Urine Catheter Amount 750 650 900 Other: Meal Breakfast Percent of Meal Consumed 100% Urine Appearance Clear Clear Uretheral (Patel) Clear Urine Color Bright Yellow Dark Yellow Uretheral (Patel) Dark Yellow Urine Odor Normal OBJ DATA Labs CBC & Chem 7: 03/01/21 08:56 02/28/21 16:22 Labs: Abnormal Lab Results 03/01/21 03/01/21 02/28/21 08:56 04:45 16:22 RBC Hgb Hct 33.1 L Lymph # (Auto) Anion Gap 4.0 L Urine RBC 27 H Urine Mucus Few A 02/28/21 16:22 RBC 4.11 L Hgb 12.5 L Hct 37.9 L Lymph # (Auto) 1.23 L Anion Gap Urine RBC Urine Mucus Meds: Medications Hydrocodone Bitart/Acetaminophen (Hydrocodone/Apap 10/325mg Tablet) 0 tab PO Q4HP PRN; Protocol PRN Reason: Per Pain Protocol Last Admin: 03/01/21 16:33 Dose: 2 tab Documented by: Ascorbic Acid (Ascorbic Acid 500 Mg Tablet) 1,000 mg PO BID [facility] Dextrose (Dextrose 50% 50 Ml Vial) 0 ml IV UD PRN PRN Reason: Hypoglycemia Diagnostic Test (Pha) (Accu-Chek 1 Each Strip) 1 each FS [facility] Last Admin: 03/01/21 16:35 Dose: 1 each Documented by: Fluoxetine HCl (Fluoxetine Hcl 20 Mg Capsule) 60 mg PO QDAY [facility] Glucose (Dextrose 31 Gm Oral.Susp) 15 gm PO PRN PRN PRN Reason: Hypoglycemia Hydromorphone HCl (Hydromorphone 1 Mg/Ml Syringe) 0 mg IV Q2HP PRN; Protocol PRN Reason: Per Pain Protocol Last Admin: 03/01/21 03:31 Dose: 0.5 mg Documented by: Lactated Ringer's (Lactated Ringers) 1,000 mls @ 50 mls/hr IV .Q20H [facility] Last Admin: 03/01/21 16:26 Dose: Not Given Documented by: Insulin Human Lispro (Insulin Lispro 1 Unit/0.01 Ml Unit) 0 unit SQ [facility]; Protocol Last Admin: 03/01/21 16:39 Dose: Not Given Documented by: Metformin HCl ([facility] 500 Mg [facility]t) [facility] Last Admin: 03/01/21 16:34 Dose: 1,000 mg Documented by: Metoprolol Tartrate (Metoprolol Tartrate 25 Mg Tablet) 12.5 mg PO BID [facility] Last Admin: 03/01/21 10:15 Dose: 12.5 mg Documented by: Ondansetron HCl (Ondansetron 4 Mg/2 Ml Vial) 4 mg IV Q6HP PRN; Protocol PRN Reason: Nausea And Vomiting Oxybutynin Chloride (Oxybutynin Chloride 5 Mg Tab.Xl.24h) 5 mg PO BID [facility] Triamcinolone Acetonide 0.1 % Ointment 1 dose TOPICAL DAILYP PRN PRN Reason: Rash Pioglitazone HCl (Pioglitazone 15 Mg Tablet) 45 mg PO DAILY [facility] Sodium Chloride (0.9 % Sodium Chloride 10 Ml Syringe) 10 ml IV Q8 [facility] Last Admin: 03/01/21 16:34 Dose: 10 ml Documented by: Tamsulosin HCl (Tamsulosin 0.4 Mg Capsule) 0.4 mg PO HS [facility] A/P Narrative A/P Narrative: Patient requires admit for 36 hours of IV antibiotics and therapy to show use of walker and to have patient walk nwb lle then may dc home He has a type 3a open fracture left pilon fx Time Spent With Patient Time: Total time spent is greater than 50% in coordination of care (as documented) at patient's floor/unit and/or counseling patient:
[2021-03-01] MEDS: TAMSULOSIN 0.4 MG CAPSULE PO SCH (20:34)
[2021-03-01] MEDS: ASCORBIC ACID 500 MG TABLET PO SCH (20:34)
[2021-03-01] MEDS: OXYBUTYNIN CHLORIDE 5 MG TAB.XL.24H PO SCH (20:34)
[2021-03-01] MEDS: ASPIRIN 81 MG TAB.CHEW PO SCH (20:37)
[2021-03-02] MEDS: HYDROcodone/APAP 10/325MG TABLET PO PRN ×6 (01:47→21:25)
[2021-03-02] MEDS: 0.9 % SODIUM CHLORIDE 10 ML SYRINGE IV SCH ×3 (05:33→21:34)
[2021-03-02 06:34] LABS: Basophils # (Auto) 0.04 K/mcL (0.00-0.20); Basophils % (Auto) 0.4 % (0.0-2.0); Eosinophils # (Auto) 0 K/mcL (0.00-0.70); Eosinophils % (Auto) 0 % (0.0-7.0); Hematocrit 32.9 % (41.0-55.0); Hemoglobin 10.8 g/dL (13.5-16.5); Lymphocytes # (Auto) 1.35 K/mcL (1.50-4.80); Lymphocytes % (Auto) 15.1 % (15.0-49.0); Mean Cell Volume 93.2 fL (80.0-100.0); Mean Corpuscular HGB Conc 32.8 g/dL (31.0-36.0); Mean Platelet Volume 9.7 fL (7.4-10.4); Monocytes # (Auto) 0.99 K/mcL (0.10-0.90); Monocytes % (Auto) 11.1 % (1.0-12.0); Neutrophils % (Auto) 73.4 % (38.0-78.0); Platelet Count 168 K/mcL (140-440); RBC 3.53 M/mcL (4.50-5.90); Red Cell Distribution Width 13.5 % (11.5-14.5)
[2021-03-02 07:06] LABS: ALT/SGPT 15 U/L (<40); AST/SGOT 34 U/L (<40); Albumin 3.4 gm/dL (3.2-5.2); Albumin/Globulin Ratio 1.4 (1.0-2.3); Alkaline Phosphatase 52 U/L (39-117); Bilirubin,Direct < 0.2 mg/dL (0-0.3); Bilirubin,Total 0.6 mg/dL (0.1-1.0); Blood Urea Nitrogen 20 mg/dL (8-23); Calcium 8.5 mg/dL (8.6-10.4); Carbon Dioxide 29 mmol/L (22-30); Chloride 106 mmol/L (96-108); Globulin 2.4 gm/dL (2.2-3.7); Glomerular Filtration Rate 85; Glucose 131 mg/dL (70-105); Lactate Dehydrogenase 205 U/L (135-225); Phosphorous 2.7 mg/dL (2.5-4.5); Triglycerides 52 mg/dL (<150)
[2021-03-02] MEDS: metFORMIN 500 MG TABLET PO SCH ×2 (08:01→16:55)
[2021-03-02] MEDS: OXYBUTYNIN CHLORIDE 5 MG TAB.XL.24H PO SCH ×2 (08:09→21:27)
[2021-03-02] MEDS: FLUoxetine HCL 20 MG CAPSULE PO SCH (08:10)
[2021-03-02] MEDS: PIOGLITAZONE 15 MG TABLET PO SCH (08:10)
[2021-03-02] MEDS: ASPIRIN 81 MG TAB.CHEW PO SCH ×2 (08:10→21:27)
[2021-03-02] MEDS: METOPROLOL TARTRATE 25 MG TABLET PO SCH ×2 (08:10→21:26)
[2021-03-02] MEDS: ASCORBIC ACID 500 MG TABLET PO SCH ×2 (08:10→21:26)
[2021-03-02] MEDS ORDERED: Triamcinolone Acetonide 0.1 % ointment TOPICAL PRN (09:00)
[2021-03-02] MEDS: INSULIN LISPRO 1 UNIT/0.01 ML UNIT SQ SCH ×4 (10:13→21:33)
--- NOTE | 2021-03-02 10:42 | Internal Med Progress Note ---
SUBJECTIVE Subjective Patient information: Note initiated : 03/02/21 at 10:39 am Service Date, if different from initiated Date: [] Patient: Luis David 70 y/o M admitted on 03/01/21 for open tib fib fracture, fall. Chief Complaint: [] Interval history: Mr. Winter is a 70-year-old with history of DM type II/morbid obesity/hypertension/BPH who fell 3 feet off a ladder landing on his feet and twisting his foot. He noticed bleeding and was unable to bear weight. He was brought into the ER with a open compound fracture distal tib-fib and subse quently was taken to surgery by orthopedics. Postoperatively hospital service was consulted in light of intraoperative atrial fibrillation however rate remained controlled around 100. Patient was seen in the immediate postoperative phase in stable condition. He denies shortness of breath or chest pain. Denies prior history of atrial fibrillation. He is currently sedated and was not able to provide a detailed history to the course of events. 03/01-patient doing well postop. Rate controlled. Denies chest pain lightheadedness dizziness. Ongoing physical therapy. Tolerating diet. Stable labs and hemodynamics. Continue postoperative care per orthopedics. Restart home medications except for antihypertensives until systolics over 140. Hemoglobin 12.3. 03/02-patient doing well. Still requiring assistance with physical therapy. Anticipate transfer to SNF in 48 hours. Case management coordinating. No overnight fever chills. Hemoglobin stable. Postop pain in good control. Cont inuing postoperative care per orthopedics. Remains rate controlled. Persistent A. fib. Consider anticoagulation for CVA prophylaxis based on CHADS2 score over 2. Constitutional Vitals: Vital Signs Temp Pulse Resp BP Pulse Ox 97.8 F 98 H 18 121/69 96 03/02/21 07:22 03/02/21 07:22 03/02/21 07:22 03/02/21 07:22 03/02/21 07:22 Period Temp Pulse Resp BP Sys/Enriquez Pulse Ox Last 24 Hr 97.8 F-98.7 F 76-98 16-22 107-142/53-76 96-99 Intake and Output 03/01/21 03/02/21 03/02/21 21:59 05:59 13:59 Intake Total 804 100 Output Total 900 1975 Balance -96 -1875 Weight 172.138 kg Alert oriented Nonlabored breathing Postop dressing no oozing No anxiety Intake & Output: Intake & Output 03/01/21 03/02/21 03/02/21 21:59 05:59 13:59 Intake Total 804 100 Output Total 900 1974 Balance -96 -187 Weight 172.138 kg Intake: IV 804 Lactated Ringers 1,000 ml @ 50 804 mls/hr IV .Q20H [facility] Rx#: [id number] Oral 100 Output: Urine Catheter Amount 900 1974 Other: Urine Appearance Clear Clear Urine Color Dark Yellow Bright Yellow Urine Odor Normal OBJ DATA Labs CBC & Chem 7: 03/02/21 05:05 03/02/21 05:05 Labs: Abnormal Lab Results 03/02/21 03/02/21 03/01/21 05:05 05:05 08:56 RBC 3.53 L Hgb 10.8 L Hct 32.9 L 33.1 L Lymph # (Auto) 1.35 L [place] # (Auto) 0.99 H Anion Gap 4.0 L Glucose 131 H Calcium 8.5 L Total Protein 5.8 L Urine RBC Urine Mucus 03/01/21 02/28/21 02/28/21 04:45 16:22 16:22 RBC 4.11 L Hgb 12.5 L Hct 37.9 L Lymph # (Auto) 1.23 L [place] # (Auto) Anion Gap 4.0 L Glucose Calcium Total Protein Urine RBC 27 H Urine Mucus Few A Meds: Medications Hydrocodone Bitart/Acetaminophen (Hydrocodone/Apap 10/325mg Tablet) 0 tab PO Q4HP PRN; Protocol PRN Reason: Per Pain Protocol Last Admin: 03/02/21 09:36 Dose: 2 tab Documented by: Ascorbic Acid (Ascorbic Acid 500 Mg Tablet) 1,000 mg PO BID [facility] Last Admin: 03/02/21 08:10 Dose: 1,000 mg Documented by: Aspirin (Aspirin 81 Mg Tab.Chew) 81 mg PO BID [facility] Last Admin: 03/02/21 08:10 Dose: 81 mg Documented by: Dextrose (Dextrose 50% 50 Ml Vial) 0 ml IV UD PRN PRN Reason: Hypoglycemia Diagnostic Test (Pha) (Accu-Chek 1 Each Strip) 1 each FS ACHS [facility] Last Admin: 03/02/21 10:12 Dose: 1 each Documented by: Fluoxetine HCl (Fluoxetine Hcl 20 Mg Capsule) 60 mg PO QDAY [facility] Last Admin: 03/02/21 08:10 Dose: 60 mg Documented by: Glucose (Dextrose 31 Gm Oral.Susp) 15 gm PO PRN PRN PRN Reason: Hypoglycemia Hydromorphone HCl (Hydromorphone 1 Mg/Ml Syringe) 0 mg IV Q2HP PRN; Protocol PRN Reason: Per Pain Protocol Last Admin: 03/01/21 03:31 Dose: 0.5 mg Documented by: Lactated Ringer's (Lactated Ringers) 1,000 mls @ 50 mls/hr IV .Q20H [facility] Last Admin: 03/01/21 16:26 Dose: Not Given Documented by: Insulin Human Lispro (Insulin Lispro 1 Unit/0.01 Ml Unit) 0 unit SQ ACHS [facility]; Protocol Last Admin: 03/02/21 10:13 Dose: Not Given Documented by: Metformin HCl (Metformin 500 Mg Tablet) 1,000 mg PO BIDCC [facility] Last Admin: 03/02/21 08:01 Dose: 1,000 mg Documented by: Metoprolol Tartrate (Metoprolol Tartrate 25 Mg Tablet) 12.5 mg PO BID [facility] Last Admin: 03/02/21 08:10 Dose: 12.5 mg Documented by: Ondansetron HCl (Ondansetron 4 Mg/2 Ml Vial) 4 mg IV Q6HP PRN; Protocol PRN Reason: Nausea And Vomiting Oxybutynin Chloride (Oxybutynin Chloride 5 Mg Tab.Xl.24h) 5 mg PO BID [facility] Last Admin: 03/02/21 08:09 Dose: 5 mg Documented by: Triamcinolone Acetonide 0.1 % Ointment 1 dose TOPICAL DAILYP PRN PRN Reason: Rash Pioglitazone HCl (Pioglitazone 15 Mg Tablet) 45 mg PO DAILY [facility] Last Admin: 03/02/21 08:10 Dose: 45 mg Documented by: Sodium Chloride (0.9 % Sodium Chloride 10 Ml Syringe) 10 ml IV Q8 [facility] Last Admin: 03/02/21 05:33 Dose: 10 ml Documented by: Tamsulosin HCl (Tamsulosin 0.4 Mg Capsule) 0.4 mg PO HS [facility] Last Admin: 03/01/21 20:34 Dose: 0.4 mg Documented by: A/P Narrative A/P Narrative: * Open left tib-fib fracture status post operative intervention. Postop day 2. Doing well. Hospitalist consult for management of medical issues as below * Atrial fibrillation new onset currently rate controlled on beta-kera. CHADS2 score 2, will discuss outpatient anticoagulation for CVA prophylaxis. * History of DM type II stable on basal prandial insulin/CC diet * History of hypertension start NAIDA inhibitor * Anxiety disorder continue fluoxetine * BPH continue tamsulosin * History obstructive sleep apnea on home CPAP Plan * Continue postop care per orthopedics * Rate control measures on oral beta-kera, consider anticoagulation for CVA prophylaxis * Pre-existing medical condition management as above * PT OT * case management to coordinate SNF transfer Time Spent With Patient Time: Total time spent is greater than 50% in coordination of care (as documented) at patient's floor/unit and/or counseling patient:
[2021-03-02] MEDS: LACTATED RINGERS 1,000 ML IV SCH (16:52)
[2021-03-02] MEDS: TAMSULOSIN 0.4 MG CAPSULE PO SCH (21:26)
[2021-03-03] MEDS: HYDROcodone/APAP 10/325MG TABLET PO PRN ×3 (01:30→14:12)
[2021-03-03] MEDS: 0.9 % SODIUM CHLORIDE 10 ML SYRINGE IV SCH ×3 (05:25→21:54)
[2021-03-03 06:58] LABS: Basophils # (Auto) 0.04 K/mcL (0.00-0.20); Basophils % (Auto) 0.5 % (0.0-2.0); Eosinophils # (Auto) 0.02 K/mcL (0.00-0.70); Eosinophils % (Auto) 0.3 % (0.0-7.0); Hematocrit 31.4 % (41.0-55.0); Hemoglobin 10.5 g/dL (13.5-16.5); Lymphocytes % (Auto) 11.7 % (15.0-49.0); Mean Cell Volume 91.3 fL (80.0-100.0); Mean Corpuscular HGB Conc 33.4 g/dL (31.0-36.0); Mean Platelet Volume 9.7 fL (7.4-10.4); Monocytes # (Auto) 0.88 K/mcL (0.10-0.90); Monocytes % (Auto) 11.5 % (1.0-12.0); Platelet Count 162 K/mcL (140-440); RBC 3.44 M/mcL (4.50-5.90); Red Cell Distribution Width 13.2 % (11.5-14.5); WBC 7.7 K/mcL (4.5-11.0)
[2021-03-03 07:39] LABS: ALT/SGPT 20 U/L (<40); AST/SGOT 42 U/L (<40); Albumin 3.7 gm/dL (3.2-5.2); Albumin/Globulin Ratio 1.7 (1.0-2.3); Alkaline Phosphatase 51 U/L (39-117); Bilirubin,Direct 0.2 mg/dL (<0.3); Bilirubin,Total 0.6 mg/dL (0.1-1.0); Blood Urea Nitrogen 14 mg/dL (8-23); Calcium 8.5 mg/dL (8.6-10.4); Carbon Dioxide 25 mmol/L (22-30); Chloride 98 mmol/L (96-108); Globulin 2.2 gm/dL (2.2-3.7); Glomerular Filtration Rate 85; Glucose 137 mg/dL (70-105); Lactate Dehydrogenase 203 U/L (135-225); Phosphorous 2.3 mg/dL (2.5-4.5); Triglycerides 81 mg/dL (<150); Uric Acid 5.3 mg/dL (2.5-8.0)
[2021-03-03] MEDS: metFORMIN 500 MG TABLET PO SCH ×2 (08:00→16:50)
[2021-03-03] MEDS: INSULIN LISPRO 1 UNIT/0.01 ML UNIT SQ SCH ×4 (08:03→21:52)
[2021-03-03] MEDS: FLUoxetine HCL 20 MG CAPSULE PO SCH (08:07)
[2021-03-03] MEDS: OXYBUTYNIN CHLORIDE 5 MG TAB.XL.24H PO SCH ×2 (08:07→21:52)
[2021-03-03] MEDS: METOPROLOL TARTRATE 25 MG TABLET PO SCH ×2 (08:07→21:53)
[2021-03-03] MEDS: ASCORBIC ACID 500 MG TABLET PO SCH ×2 (08:07→21:53)
[2021-03-03] MEDS: PIOGLITAZONE 15 MG TABLET PO SCH (08:08)
[2021-03-03] MEDS: ASPIRIN 81 MG TAB.CHEW PO SCH ×2 (08:08→21:52)
[2021-03-03] MEDS: LISINOPRIL 10 MG TABLET PO SCH (08:08)
[2021-03-03] MEDS: LACTATED RINGERS 1,000 ML IV SCH (10:07)
[2021-03-03] MEDS ORDERED: CALCIUM CARBONATE 500 MG TAB.CHEW CHEWED PRN ×2 (10:35→14:45)
--- NOTE | 2021-03-03 14:38 | Internal Med Progress Note ---
SUBJECTIVE Subjective Patient information: Note initiated : 03/03/21 at 2:36 pm Service Date, if different from initiated Date: [] Patient: Luis David 70 y/o M admitted on 03/01/21 for open tib fib fracture, fall. Chief Complaint: [] Interval history: Mr. Winter is a 70-year-old with history of DM type II/morbid obesity/hypertension/BPH who fell 3 feet off a ladder landing on his feet and twisting his foot. He noticed bleeding and was unable to bear weight. He was brought into the ER with a open compound fracture distal tib-fib and subseq uently was taken to surgery by orthopedics. Postoperatively hospital service was consulted in light of intraoperative atrial fibrillation however rate remained controlled around 100. Patient was seen in the immediate postoperative phase in stable condition. He denies shortness of breath or chest pain. Denies prior history of atrial fibrillation. He is currently sedated and was not able to provide a detailed history to the course of events. 03/01-patient doing well postop. Rate controlled. Denies chest pain lightheadedness dizziness. Ongoing physical therapy. Tolerating diet. Stable labs and hemodynamics. Continue postoperative care per orthopedics. Restart home medications except for antihypertensives until systolics over 140. Hemoglobin 12.3. 03/02-patient doing well. Still requiring assistance with physical therapy. Anticipate transfer to SNF in 48 hours. Case management coordinating. No overnight fever chills. Hemoglobin stable. Postop pain in good control. Romulo nuing postoperative care per orthopedics. Remains rate controlled. Persistent A. fib. Consider anticoagulation for CVA prophylaxis based on CHADS2 score over 2. 416 patient doing well. Ongoing therapies. Was reluctant to consider SNF however due to weightbearing status/lack of adequate help at home patient now considering SNF transfer. Case management coordinating. Will likely discharge in 24 hours. Stable labs and hemodynamics. No concerns expressed per nursing staff. Low phosphorus on replacement Constitutional Vitals: Vital Signs Temp Pulse Resp BP Pulse Ox 98.4 F 81 16 107/71 98 03/03/21 11:38 03/03/21 11:38 03/03/21 11:38 03/03/21 11:38 03/03/21 11:38 Period Temp Pulse Resp BP Sys/Enriquez Pulse Ox Last 24 Hr 97.5 F-99.4 F 81-99 12-18 103-128/65-76 94-98 Intake and Output 03/03/21 03/03/21 03/03/21 05:59 13:59 21:59 Intake Total 1200 240 Output Total 952 850 Balance 248 -610 alert oriented Nonlabored breathing Morbidly obese Left lower extremity covered in postop dressing Intake & Output: Intake & Output 03/03/21 03/03/21 03/03/21 05:59 13:59 21:59 Intake Total 1200 240 Output Total 952 850 Balance 248 -610 Intake: Oral 1200 240 Output: Void Amount 950 850 # of times incontinent of urine 2 Other: Meal Breakfast Percent of Meal Consumed 100% Feeding Ability Independent Urine Appearance Clear Clear Urine Color Bright Yellow Bright Yellow # Voids 1 OBJ DATA Labs CBC & Chem 7: 03/03/21 05:50 03/03/21 05:50 Labs: Abnormal Lab Results 03/03/21 03/03/21 03/02/21 05:50 05:50 05:05 RBC 3.44 L 3.53 L Hgb 10.5 L 10.8 L Hct 31.4 L 32.9 L Lymph % (Auto) 11.7 L Lymph # (Auto) 0.90 L 1.35 L [place] # (Auto) 0.99 H Anion Gap Glucose 137 H Calcium 8.5 L Phosphorus 2.3 L AST 42 H Total Protein Urine RBC Urine Mucus 03/02/21 03/01/21 03/01/21 05:05 08:56 04:45 RBC Hgb Hct 33.1 L Lymph % (Auto) Lymph # (Auto) [place] # (Auto) Anion Gap 4.0 L Glucose 131 H Calcium 8.5 L Phosphorus AST Total Protein 5.8 L Urine RBC 27 H Urine Mucus Few A 02/28/21 02/28/21 16:22 16:22 RBC 4.11 L Hgb 12.5 L Hct 37.9 L Lymph % (Auto) Lymph # (Auto) 1.23 L [place] # (Auto) Anion Gap 4.0 L Glucose Calcium Phosphorus AST Total Protein Urine RBC Urine Mucus Meds: Medications Hydrocodone Bitart/Acetaminophen (Hydrocodone/Apap 10/325mg Tablet) 0 tab PO Q4HP PRN; Protocol PRN Reason: Per Pain Protocol Last Admin: 03/03/21 14:12 Dose: 1 tab Documented by: Ascorbic Acid (Ascorbic Acid 500 Mg Tablet) 1,000 mg PO BID [facility] Last Admin: 03/03/21 08:07 Dose: 1,000 mg Documented by: Aspirin (Aspirin 81 Mg Tab.Chew) 81 mg PO BID [facility] Last Admin: 03/03/21 08:08 Dose: 81 mg Documented by: Calcium Carbonate/Glycine (Calcium Carbonate 500 Mg Tab.Chew) 500 mg CHEWED Q4HP PRN PRN Reason: Dyspepsia Last Admin: 03/03/21 10:46 Dose: 500 mg Documented by: Dextrose (Dextrose 50% 50 Ml Vial) 0 ml IV UD PRN PRN Reason: Hypoglycemia Diagnostic Test (Pha) (Accu-Chek 1 Each Strip) 1 each FS [facility] Last Admin: 03/03/21 11:50 Dose: 1 each Documented by: Fluoxetine HCl (Fluoxetine Hcl 20 Mg Capsule) 60 mg PO QDAY [facility] Last Admin: 03/03/21 08:07 Dose: 60 mg Documented by: Glucose (Dextrose 31 Gm Oral.Susp) 15 gm PO PRN PRN PRN Reason: Hypoglycemia Hydromorphone HCl (Hydromorphone 1 Mg/Ml Syringe) 0 mg IV Q2HP PRN; Protocol PRN Reason: Per Pain Protocol Last Admin: 03/01/21 03:31 Dose: 0.5 mg Documented by: Lactated Ringer's (Lactated Ringers) 1,000 mls @ 50 mls/hr IV .Q20H [facility] Last Admin: 03/03/21 10:07 Dose: Not Given Documented by: Insulin Human Lispro (Insulin Lispro 1 Unit/0.01 Ml Unit) 0 unit SQ [facility]; Protocol Last Admin: 03/03/21 11:51 Dose: Not Given Documented by: Lisinopril (Lisinopril 10 Mg Tablet) 10 mg PO DAILY [facility] Last Admin: 03/03/21 08:08 Dose: 10 mg Documented by: Metformin HCl ([facility] 500 Mg Tablet) [facility] Last Admin: 03/03/21 08:00 Dose: 1,000 mg Documented by: Metoprolol Tartrate (Metoprolol Tartrate 25 Mg Tablet) 12.5 mg PO BID [facility] Last Admin: 03/03/21 08:07 Dose: 12.5 mg Documented by: Ondansetron HCl (Ondansetron 4 Mg/2 Ml Vial) 4 mg IV Q6HP PRN; Protocol PRN Reason: Nausea And Vomiting Oxybutynin Chloride (Oxybutynin Chloride 5 Mg Tab.Xl.24h) 5 mg PO BID [facility] Last Admin: 03/03/21 08:07 Dose: 5 mg Documented by: Triamcinolone Acetonide 0.1 % Ointment 1 dose TOPICAL DAILYP PRN PRN Reason: Rash Pioglitazone HCl (Pioglitazone 15 Mg Tablet) 45 mg PO DAILY [facility] Last Admin: 03/03/21 08:08 Dose: 45 mg Documented by: Sodium Chloride (0.9 % Sodium Chloride 10 Ml Syringe) 10 ml IV Q8 [facility] Last Admin: 03/03/21 05:25 Dose: 10 ml Documented by: Tamsulosin HCl (Tamsulosin 0.4 Mg Capsule) 0.4 mg PO HS [facility] Last Admin: 03/02/21 21:26 Dose: 0.4 mg Documented by: A/P Narrative A/P Narrative: * Open left tib-fib fracture status post operative intervention. Postop day 3. Doing well. Managed per orthopedics Hospitalist consult for management of medical issues as below * Atrial fibrillation new onset currently rate controlled on beta-kera. CHADS2 score 2, start Xarelto * History of DM type II stable on basal prandial insulin/CC diet * History of hypertension start NAIDA inhibitor * Anxiety disorder continue fluoxetine * BPH continue tamsulosin * History obstructive sleep apnea on home CPAP Plan * Continue postop care per orthopedics * Rate control measures on oral beta-kera, start Xarelto for CVA prophylaxis * Pre-existing medical condition management as above * PT OT * case management to coordinate SNF transfer Time Spent With Patient Time: Total time spent is greater than 50% in coordination of care (as documented) at patient's floor/unit and/or counseling patient:
[2021-03-03] MEDS ORDERED: NEUTRA PHOS 1 PACKET PO PRN (14:44)
[2021-03-03] MEDS: traMADol 50 MG TABLET PO PRN (18:34)
[2021-03-03] MEDS: TAMSULOSIN 0.4 MG CAPSULE PO SCH (21:52)
[2021-03-04] MEDS: traMADol 50 MG TABLET PO PRN ×3 (00:28→12:34)
[2021-03-04] MEDS: 0.9 % SODIUM CHLORIDE 10 ML SYRINGE IV SCH ×2 (06:47→14:12)
[2021-03-04 06:57] LABS: Basophils # (Auto) 0.02 K/mcL (0.00-0.20); Basophils % (Auto) 0.3 % (0.0-2.0); Eosinophils # (Auto) 0.03 K/mcL (0.00-0.70); Eosinophils % (Auto) 0.4 % (0.0-7.0); Hematocrit 31.4 % (41.0-55.0); Hemoglobin 10.3 g/dL (13.5-16.5); Lymphocytes # (Auto) 1.13 K/mcL (1.50-4.80); Mean Cell Volume 92.6 fL (80.0-100.0); Mean Corpuscular HGB Conc 32.8 g/dL (31.0-36.0); Monocytes # (Auto) 0.76 K/mcL (0.10-0.90); Monocytes % (Auto) 10.1 % (1.0-12.0); Neutrophils % (Auto) 74.2 % (38.0-78.0); Platelet Count 191 K/mcL (140-440); RBC 3.39 M/mcL (4.50-5.90); Red Cell Distribution Width 13.1 % (11.5-14.5); WBC 7.6 K/mcL (4.5-11.0)
[2021-03-04 07:28] LABS: ALT/SGPT 28 U/L (<40); AST/SGOT 50 U/L (<40); Albumin 3.5 gm/dL (3.2-5.2); Albumin/Globulin Ratio 1.3 (1.0-2.3); Alkaline Phosphatase 51 U/L (39-117); Bilirubin,Direct 0.2 mg/dL (<0.3); Bilirubin,Total 0.6 mg/dL (0.1-1.0); Blood Urea Nitrogen 15 mg/dL (8-23); Calcium 8.8 mg/dL (8.6-10.4); Carbon Dioxide 26 mmol/L (22-30); Chloride 99 mmol/L (96-108); Globulin 2.6 gm/dL (2.2-3.7); Glomerular Filtration Rate 85; Glucose 121 mg/dL (70-105); Lactate Dehydrogenase 250 U/L (135-225); Phosphorous 2.6 mg/dL (2.5-4.5); Triglycerides 76 mg/dL (<150); Uric Acid 5.4 mg/dL (2.5-8.0)
[2021-03-04] MEDS: INSULIN LISPRO 1 UNIT/0.01 ML UNIT SQ SCH ×2 (07:32→11:50)
[2021-03-04] MEDS: ASCORBIC ACID 500 MG TABLET PO SCH (08:33)
[2021-03-04] MEDS: metFORMIN 500 MG TABLET PO SCH (08:33)
[2021-03-04] MEDS: FLUoxetine HCL 20 MG CAPSULE PO SCH (08:33)
[2021-03-04] MEDS: PIOGLITAZONE 15 MG TABLET PO SCH (08:34)
[2021-03-04] MEDS: LISINOPRIL 10 MG TABLET PO SCH (08:34)
[2021-03-04] MEDS: ASPIRIN 81 MG TAB.CHEW PO SCH (08:34)
[2021-03-04] MEDS: OXYBUTYNIN CHLORIDE 5 MG TAB.XL.24H PO SCH (08:34)
[2021-03-04] MEDS: METOPROLOL TARTRATE 25 MG TABLET PO SCH (08:34)
[2021-03-04] MEDS ORDERED: RIVAROXABAN 20 MG TABLET PO SCH (09:00)
--- NOTE | 2021-03-04 14:14 | Discharge Summary ---
Discharge Provider Provider Patient information: Note initiated : 03/04/21 at 2:11 pm Service Date, if different from initiated Date: [] Patient: Luis David 70 y/o M admitted on 03/01/21 for open tib fib fracture, fall. DISCHARGE DIAGNOSIS * Open left tib-fib fracture status post operative intervention. Postop day 4, doing well, Dc per orthopedic recommendation Hospitalist consult for management of medical issues as below * Atrial fibrillation new onset currently rate controlled on beta-kera. CHADS2 score 2, Continue Xarelto.Continue follow-up with PCP and cardiology as outpatient for possible cardioversion * History of DM type II stable on basal prandial insulin/CC diet * History of hypertension continue NAIDA inhibitor * Anxiety disorder continue fluoxetine * BPH continue tamsulosin * History obstructive sleep apnea on home CPAP [facility] Mr. Winter is a 70-year-old with history of DM type II/morbid obesity/hypertension/BPH who fell 3 feet off a ladder landing on his feet and twisting his foot. He noticed bleeding and was unable to bear weight. He was brought into the ER with a open compound fracture distal tib-fib and subsequently was taken to surgery by orthopedics. Postoperatively hospital service was consulted in light of intraoperative atrial fibrillation however rate remained controlled around 100. Patient was seen in the immediate postoperative phase in stable condition. He denies shortness of breath or chest pain. Denies prior history of atrial fibrillation. He is currently sedated and was not able to provide a detailed history to the course of events. 03/01-patient doing well postop. Rate controlled. Denies chest pain lightheadedness dizziness. Ongoing physical therapy. Tolerating diet. Stable labs and hemodynamics. Continue postoperative care per orthopedics. Restart home medications except for antihypertensives until systolics over 140. Hemoglobin 12.3. 03/02-patient doing well. Still requiring assistance with physical therapy. Anticipate transfer to SNF in 48 hours. Case management coordinating. No overnight fever chills. Hemoglobin stable. Postop pain in good control. Continuing postoperative care per orthopedics. Remains rate controlled. Persistent A. fib. Consider anticoagulation for CVA prophylaxis based on CHADS2 score over 2. 416 patient doing well. Ongoing therapies. Was reluctant to consider SNF however due to weightbearing status/lack of adequate help at home patient now considering SNF transfer. Case management coordinating. Will likely discharge in 24 hours. Stable labs and hemodynamics. No concerns expressed per nursing staff. Low phosphorus on replacement. 03/04-patient doing well. No overnight events. Ongoing wound care per orthopedics. Weightbearing and postop care per orthopedics. Discharging home with advised to follow-up with PCP/orthopedics and continue postoperative recommendations per orthopedics. Additionally patient is now on metoprolol 12.5 twice daily for rate control underlying A. fib. Discussed the risk and benefits of Xarelto for CVA prophylaxis and patient agrees to continue anticoagulation. Patient may need follow-up with PCP and further evaluation including cardiology follow-up and possibly cardioversion for rhythm control. Discharging with advised as below Date of admission: 03/01/21 07:00 Discharge date: 03/04/21 Primary care physician: Edis Ramirez DO Consults: 02/28/21 16:36 Consult to Physician [CONS] Stat Comment: Consulting Provider: Levi Akers Reason For Exam: Physician to Consult 03/01/21 08:36 Consult to Physician [CONS] Routine Comment: Consulting Provider: Kaushik Guzman Reason For Exam: Physician to Consult Discharge Meds Discharge Medications Home Medications ascorbic acid (vitamin C) 1,000 mg tablet 1 g PO BID tab 07/31/17 [History Confirmed 02/28/21 Last Taken 02/28/21 1000 mg] CPAP and Supplies #1 ea 09/24/17 [Rx Confirmed 02/28/21 Last Taken Unknown] Diabetic Shoes #1 each 11/28/17 [Rx Confirmed 02/28/21 Last Taken Unknown] triamcinolone acetonide 0.1 % topical ointment 1 applic TOPICAL QDAY #30 g 05/19/20 [Rx Confirmed 02/28/21 Last Taken 02/26/21 1 application] fluoxetine 20 mg capsule 60 mg PO QDAY #270 cap 07/27/20 [Rx Confirmed 02/28/21 Last Taken 02/28/21 60 mg] lisinopril 20 mg tablet 20 mg PO QDAY #90 tab 07/27/20 [Rx Confirmed 02/28/21 Last Taken 02/28/21 20 mg] metformin 1,000 mg tablet 1,000 mg PO BID #180 tab 07/27/20 [Rx Confirmed 02/28/21 Last Taken 02/28/21 1000 mg] pioglitazone 45 mg tablet 45 mg PO QDAY #90 tab 07/27/20 [Rx Confirmed 02/28/21 Last Taken 02/28/21 45 mg] oxybutynin chloride 5 mg tablet,extended release 24 hr 5 mg PO BID #180 tab 09/01/20 [Rx Confirmed 02/28/21 Last Taken 02/28/21 5 mg] tamsulosin 0.4 mg capsule 0.4 mg PO Q24H #90 cap 09/26/20 [Rx Confirmed 02/28/21 Last Taken 02/28/21 0.4 mg] hydrocodone-acetaminophen 1 - 2 tab PO Q4H PRN #60 tab 03/01/21 [Rx Last Taken Unknown] hydrocodone-acetaminophen 1 - 2 tab PO Q4HP PRN #0 tab 03/01/21 [Rx Last Taken Unknown] metoprolol tartrate 12.5 mg PO BID #30 tab 03/04/21 [Rx Last Taken Unknown] rivaroxaban [Xarelto] 20 mg PO DAILY #30 tab 03/04/21 [Rx Last Taken Unknown] COURSE Hospital Course Hospital course: . Discharge diagnosis: . Time Spent with Patient Time attestation: Total time spent providing and/or coordinating discharge services: EXAM Constitutional Vitals: Temp Pulse Resp BP Pulse Ox 97.3 F 88 16 156/83 98 03/04/21 11:35 03/04/21 11:35 03/04/21 11:35 03/04/21 11:35 03/04/21 11:35 Discharge Data Data Completed and Pending Labs on day of discharge: Labs from last 24 hours 03/04/21 03/04/21 05:19 05:19 WBC 7.6 RBC 3.39 L Hgb 10.3 L Hct 31.4 L MCV 92.6 MCH 30.4 MCHC 32.8 RDW 13.1 Plt Count 191 MPV 10.0 Neut % (Auto) 74.2 Lymph % (Auto) 15.0 [place] % (Auto) 10.1 Eos % (Auto) 0.4 Baso % (Auto) 0.3 Lymph # (Auto) 1.13 L [place] # (Auto) 0.76 Eos # (Auto) 0.03 Baso # (Auto) 0.02 Absolute Neutrophils 5.61 Sodium 133 Potassium 4.1 Chloride 99 Carbon Dioxide 26 Anion Gap 8.0 BUN 15 Creatinine 0.9 GFR Calculation 85 Glucose 121 H Uric Acid 5.4 Calcium 8.8 Phosphorus 2.6 Magnesium 1.8 Total Bilirubin 0.6 Direct Bilirubin 0.2 GGT 10 AST 50 H ALT 28 Alkaline Phosphatase 51 Lactate Dehydrogenase 250 H Total Protein 6.1 Albumin 3.5 Globulin 2.6 Albumin/Globulin Ratio 1.3 Triglycerides 76 Discharge Plan Patient/Caregiver Discharge Instructions Activity: ambulate only with your walker Diet: Regular Diet Instructions: Diabetes Mellitus Type 2 in Adults, Integrated Specialist (GEN) Activity Restrictions/Additional Instructions: non-weight bearing left leg. Aspirin 81 mg BID for 7 days upon discharge. wound care per orthopedics F/u PCP in 7 days Prescriptions: New hydrocodone-acetaminophen 10-325 mg Tablet 1 - 2 tab PO Q4HP PRN (Reason: Per Pain Protocol) Qty: 0 RF: 0 hydrocodone-acetaminophen 10-325 mg Tablet 1 - 2 tab PO Q4H PRN (Reason: Pain) Qty: 60 RF: 0 Xarelto 20 mg Tablet 20 mg PO DAILY Qty: 30 RF: 0 metoprolol tartrate 25 mg Tablet 12.5 mg PO BID Qty: 30 RF: 0 Continued (DME) CPAP and Supplies Qty: 1 RF: 0 (DME) Diabetic Shoes Qty: 1 RF: 0 triamcinolone acetonide 0.1 % topical ointment 0.1 % ointment 1 applic TOPICAL QDAY Qty: 30 RF: 1 oxybutynin chloride [Ditropan XL] 5 mg tablet extended release 24hr 5 mg PO BID Qty: 180 RF: 3 tamsulosin [Flomax] 0.4 mg capsule 0.4 mg PO Q24H Qty: 90 RF: 3 fluoxetine 20 mg capsule 60 mg PO QDAY Qty: 270 RF: 3 lisinopril 20 mg tablet 20 mg PO QDAY Qty: 90 RF: 3 metformin 1,000 mg tablet 1,000 mg PO BID Qty: 180 RF: 3 pioglitazone 45 mg tablet 45 mg PO QDAY Qty: 90 RF: 3 ascorbic acid (vitamin C) 1,000 mg tablet 1 g PO BID RF: 0 Other Ambulatory Orders: Wound Care Instructions (CONT) Location: None Selected Ordered By: Levi Akers Wound Care Instructions (CONT) Location: None Selected Ordered By: Levi Hudson (ONCE) Location: None Selected Ordered By: Levi Gallego (ONCE) Location: None Selected Ordered By: Levi Akers Follow Up Plan Follow up with: Edis Ramirez DO [Primary Care Provider] - Patient Disposition: Home, Self-Care Prognosis: Fair Rehab Potential: Good I certify that the patient requires SNF services: No Overall status at discharge: patient is not back to baseline Discharge Orders: Discharge Order (Routine); Ordered 03/04/21 Ordered By: Levi Akers
== END 2021-03-04 14:52 | disposition home or self-care (01) | DRG 492 ==
LOC: ED 15:52 → SUR 17:40 → MEDSUR 22:04
PROVIDERS: ADMIT Orthopaedic Surgery; ATTEND Orthopaedic Surgery